=== PATIENT | female | born 1970 | race Caucasian/White ===

== ENCOUNTER → 2017-03-20 | Outpatient (CLI) | payer OTHER | END | disposition home or self-care (01) | LOC: CFH 09:56 | PROVIDERS: ATTEND Internal Medicine Geriatric Medicine | DX: M77.31 Calcaneal spur, right foot (principal); M25.551 Pain in right hip ==

== ENCOUNTER → 2020-04-27 | Outpatient (CLI) | payer OTHER ==
[~2020-04-27] MED LIST: NONE PER PT
[2020-04-27 09:51] LABS: HCG UR SG 1.007 (1.003-1.030); MICROSCOPIC NOT IND
[2020-04-27 09:57] LABS: BASOPHILS # (AUTO) 0.02 x10^3/uL (0-0.1); BASOPHILS % (AUTO) 0 % (0-1); EOSINOPHILS # (AUTO) 0.03 x10^3/uL (0-0.4); EOSINOPHILS % (AUTO) 1 % (1-7); LYMPHOCYTES # (AUTO) 1.49 x10^3/uL (1-3.4); LYMPHOCYTES % (AUTO) 30 % (22-44); MD NO; MEAN CORPUSCULAR HEMOGLOBIN 28.9 pg (27.0-34.8); MEAN CORPUSCULAR HGB CONC 33.7 g/dL (32.4-35.8); MEAN CORPUSCULAR VOLUME 85.9 fL (80-100); MEAN PLATELET VOLUME 7.3 fL (7.4-10.4); MONOCYTES # (AUTO) 0.26 x10^3/uL (0.2-0.8); MONOCYTES % (AUTO) 5 % (2-9); NEUTROPHILS # (AUTO) 3.17 x10^3/uL (1.8-6.8); NEUTROPHILS % (AUTO) 64 % (42-75); PLATELET COUNT 407 x10^3/uL (130-400); RED BLOOD COUNT 4.51 x10^6/uL (3.82-5.3); RED CELL DISTRIBUTION WIDTH 14.8 % (9.6-15.2)
[2020-04-27 10:03] LABS: ANION GAP 9 mmol/L (5-15); CALCIUM 8.9 mg/dL (8.5-10.1); CHLORIDE 108 mmol/L (98-107); CREATININE 0.77 mg/dL (0.55-1.02)
== END | disposition home or self-care (01) ==
LOC: STAR 08:53
PROVIDERS: ATTEND Obstetrics & Gynecology
DX: Z01.818 Encounter for other preprocedural examination (principal); N92.0 Excessive and frequent menstruation with regular cycle; N93.9 Abnormal uterine and vaginal bleeding, unspecified
CPT/HCPCS: 36415; 80048; 81003; 81025; 85025

== ENCOUNTER 2020-05-01 12:16 | Day surgery (SDC) | payer OTHER ==
[~2020-05-01] VITALS: Ht 170.2 cm; Wt 108.8 kg
[2020-05-01 12:49] VITALS: BP 114/77
[2020-05-01] MEDS ORDERED: LACTATED RINGERS 1,000 ML IV SCH (13:00)
[2020-05-01] MEDS ORDERED: CHLORHEXIDINE 15 ML UDC MM ONE (13:00)
[2020-05-01 13:15] LABS: HCG UR SG 1.018 (1.003-1.030)
[2020-05-01] MEDS ORDERED: SILVER NITRATE STICK TP ONE (13:36)
[2020-05-01] MEDS ORDERED: SODIUM CHLORIDE 0.9% 100 ML ONE (13:37)
[2020-05-01] MEDS ORDERED: VASOPRESSIN 20 UNIT/ML, 1ML ONE (13:37)
[2020-05-01] MEDS ORDERED: FENTANYL PF 100 MCG/2ML ONE ×2 (13:59→14:31)
[2020-05-01] MEDS ORDERED: MIDAZOLAM 1 MG/ML, 2ML ONE (13:59)
[2020-05-01] MEDS ORDERED: LIDOCAINE-MPF 2% ,5ML ONE (14:01)
[2020-05-01] MEDS ORDERED: PROPOFOL 10 MG/ML, 20ML ONE (14:01)
[2020-05-01] MEDS ORDERED: DEXAMETHASONE 4 MG/ML, 1ML ONE ×3 (14:32)
[2020-05-01] MEDS ORDERED: ONDANSETRON 2MG/ML, 2ML ONE (14:59)
[2020-05-01] MEDS ORDERED: KETOROLAC 30 MG/1 ML ONE (14:59)
[2020-05-01] MEDS ORDERED: FENTANYL PF 100 MCG/2ML IV PRN (15:00)
[2020-05-01] MEDS ORDERED: ONDANSETRON 2MG/ML, 2ML IVPush PRN (15:00)
[2020-05-01] MEDS ORDERED: OXYcodone 5 MG/5 ML ORAL.SOL UDC PO PRN (15:00)
== END 2020-05-01 16:40 | disposition home or self-care (01) ==
LOC: OUT 12:16
PROVIDERS: ATTEND Obstetrics & Gynecology
DX: N92.1 Excessive and frequent menstruation with irregular cycle (principal); Z11.59 Encounter for screening for other viral diseases; E66.9 Obesity, unspecified; Z68.37 Body mass index [BMI] 37.0-37.9, adult; Z98.51 Tubal ligation status; Z98.890 Other specified postprocedural states; Z87.891 Personal history of nicotine dependence; Z72.89 Other problems related to lifestyle
CPT/HCPCS: 58563; 81025; J1100; J1885; J2250; J2405; J2704; J3010; J7120; U0001

== ENCOUNTER 2021-03-02 08:16 | Outpatient (CLI) | payer OTHER | END 2021-03-02 23:59 | disposition home or self-care (01) | LOC: CFH 08:16 | PROVIDERS: ATTEND Internal Medicine Geriatric Medicine | DX: Z12.31 Encounter for screening mammogram for malignant neoplasm of breast (principal); N63.20 Unspecified lump in the left breast, unspecified quadrant | CPT/HCPCS: 77063; 77067 ==